=== PATIENT | female | born 1975 | race Two or more races ===

== ENCOUNTER 2022-09-30 09:58 | Outpatient (CLI) | payer OTHER | END 2022-09-30 10:21 | disposition home or self-care (01) | LOC: LAB 09:58 | PROVIDERS: ATTEND Neuromusculoskeletal Medicine, Sports Medicine | DX: D64.9 Anemia, unspecified (principal); N85.8 Other specified noninflammatory disorders of uterus; I10 Essential (primary) hypertension ==

== ENCOUNTER 2022-10-11 12:57 | Outpatient (CLI) | payer OTHER | END 2022-10-11 13:01 | disposition home or self-care (01) | LOC: NUCLEAR 12:57 | PROVIDERS: ATTEND Neuromusculoskeletal Medicine, Sports Medicine | DX: M85.80 Other specified disorders of bone density and structure, unspecified site (principal) ==